=== PATIENT | female | born 1950 | race Caucasian/White ===

== ENCOUNTER 2018-11-04 05:20 | Day surgery (SDC) | payer MEDICARE ==
[~2018-11-04] VITALS: Ht 160 cm; Wt 66.7 kg
[2018-11-04 05:55] LABS: ANION GAP 13.9 mmol/L (8-16); CALCIUM 7.9 mg/dL (8.5-10.1); CARBON DIOXIDE 23.9 mmol/L (21.0-32.0); CREATININE - SERUM 2.8 mg/dL (0.6-1.3); INR 1.13 (0.85-1.17); POTASSIUM - SERUM 4.8 mmol/L (3.5-5.1)
[2018-11-04 05:56] LABS: APTT 56.2 SECONDS (22.8-39.4)
[2018-11-04 06:15] LABS: HEMATOCRIT 32.2 % (36.0-48.0); HEMOGLOBIN 10.4 g/dL (12-16); LYMPHOCYTES 26.3 % (15-50); MCH 27.8 pg (26.0-34.0); MCHC 32.3 g/dL (31.0-37.0); MCV 86.1 fL (80.0-100.0); NEUTROPHILS 58.5 % (40-80); PLATELET COUNT 106 10x3/uL (130-400); RBC 3.74 10x6/uL (4.00-5.40); RDW 13.2 % (11.5-14.5); WBC 4.4 10x3/uL (4.8-10.8)
[2018-11-04] MEDS ORDERED: LISINOPRIL40 MG (06:43)
[2018-11-04] MEDS ORDERED: FUROSEMIDE40 MG PO (06:48)
[2018-11-04] MEDS ORDERED: RANITIDINE HCL150 M1 (06:49)
[2018-11-04] MEDS ORDERED: CARDURA2 MG PO (06:50)
[2018-11-04] MEDS ORDERED: NORVASC10 MG (06:50)
[2018-11-04] MEDS ORDERED: ISOSORBIDE MONO30 M1 (06:50)
[2018-11-04] MEDS ORDERED: PROTONIX40 MG (06:51)
[2018-11-04] MEDS ORDERED: TOPROL XL100 MG PO (06:51)
[2018-11-04] MEDS ORDERED: SINGULAIR10 MG (06:52)
[2018-11-04] MEDS ORDERED: EFFEXOR XR75 MG (06:52)
[2018-11-04] MEDS ORDERED: ZOCOR10 MG (06:53)
[2018-11-04] MEDS ORDERED: COLACE100 MG (06:54)
[2018-11-04] MEDS ORDERED: COLACE100 MG PO (06:54)
[2018-11-04] MEDS ORDERED: VITAMIN B-12500 MC1 (06:55)
[2018-11-04] MEDS ORDERED: ARICEPT23 MG (06:56)
[2018-11-04] MEDS ORDERED: FERROUS SULFAT325 MG (06:57)
[2018-11-04] MEDS ORDERED: VITAMIN D2000 UNIT (06:57)
[2018-11-04] MEDS ORDERED: BAYER CHEWABLE81 MG PO (06:57)
[2018-11-04 07:20] VITALS: Ht 160 cm; Wt 66.7 kg
--- NOTE | 2018-11-04 09:06 | NUR ---
0825: NOTED MULTIPLE VERY SMALL SCABS ON LEFT ARM BLOCK DONE IN HOLDING AREA PER ANESTHESIA
[2018-11-04] MEDS ORDERED: HYDROCODON-ACE1 EAC7 PO (12:29)
--- NOTE | 2018-11-04 14:10 | NUR ---
RIGHT HAND PIV DC'D WITH TIP INTACT. PATIENT WALKING AROUND ROOM, WEARING LEFT ARM SLING, GOOD MOVEMENT AND SENSATION NOTED IN LEFT ARM. PATIENT DRESSING IN PERSONAL CLOTHING WITH DAUGHTER ASSISTANCE
--- NOTE | 2018-11-04 14:30 | NUR ---
DISCHARGE INSTRUCTIONS REVIEWED WITH PATIENT AND DAUGHTER, DISCHARGED HOME VIA WHEELCHAIR TO PRIVATE VEHICLE WITH DAUGHTER
--- NOTE | 2018-11-08 14:58 | OP ---
PATIENT NAME: MARIA DE JESUS CLAUDIO MEDICAL RECORD: [id number] :46 LOCATION:[facility] ADMISSION DATE: SURGEON: DAWOOD HOLM MD DATE OF OPERATION: 11/04/2018 REFERRED BY: Dr. Grullon. PREOPERATIVE DIAGNOSIS: Chronic kidney disease IV. POSTOPERATIVE DIAGNOSIS: Chronic kidney disease IV. OPERATION PERFORMED: Initial unsuccessful attempt to create a Darrell type brachial artery to basilic vein AV fistula followed by implantation of an Artegraft between the proximal basilic vein and the brachial artery just above the antecubital space, also with intraoperative ultrasound. SURGEON: Dawood Holm MD ANESTHESIA: Regional nerve block and IV sedation and monitoring per SHAFT SINKER. PREOPERATIVE NOTE: Ms. Claudio is a 68-year-old white female patient with chronic renal disease, who is expected to require dialysis in the relatively near future. She was referred to me for dialysis access and hopefully she can have an AV fistula created, though her vein mapping indicates small vessels and because of that and her age and tissues, she may have to have an AV graft. Under a nerve block in supine position and under sedation and monitored per SHAFT SINKER, the patient is prepped and draped in sterile manner. I used a [place] drain as a proximal venous tourniquet and applied topical nitroglycerin to the intact skin of the arm and forearm. I performed Duplex Venous Ultrasound examination and demonstrated a 2 mm cephalic vein at the wrist and mid forearm and not much better at the antecubital level. There was an approximately 3-3.5 mm basilic vein at the antecubital level. The brachial artery was relatively clear of atherosclerotic disease and was not calcified and of adequate caliber about 4 mm-5 mm in diameter and so at that point, I elected to go ahead and attempt to create a Darrell type brachiobasilic AV fistula, which if successful would require a second operation for translocation. I made an incision directly over the distal basilic vein and this was curved laterally on to the antecubital space. The brachial artery was exposed and controlled with doubly looped Silastic tapes. The basilic vein was exposed and dissected for a distance of about 2 inches. Multiple tributaries were ligated and divided between clips and Vicryl ties and the vein was treated repeatedly with topical papaverine, yet spasm and the vessel was quite severe. The vein was then ligated distally and transected and bevelled and flushed with heparinized saline and distended as hydrostatically with the heparinized saline while additional papaverine was applied. The vessel was then anastomosed end-to-side to the brachial artery. First, the artery was opened and flushed proximally and distally with heparinized saline and an end-to-side, end of vein to side of artery anastomosis was performed with running 7-0 Prolene. When completed, the fistula functioned poorly and then thrombosed and at that point, I elected to take down the fistula and go ahead and implant a graft. The fistula had been very difficult to construct at that level with that size vein and I thought it would be foolish to persist with that effort. The vein was subsequently ligated and later detached from the anastomotic area on the brachial artery. A vertical incision was made on the medial aspect of the upper arm and the basilic vein exposed and OPERATIVE REPORT [id number] MARIA DE JESUS CLAUDIO controlled with Silastic loops and it was of good caliber a centimeter or so in diameter. It was opened longitudinally and flushed proximally and distally with heparinized saline and a 6 mm diameter Artegraft was bevelled and anastomosed end-to-side, end of Artegraft to side of vein with running 6-0 Prolene and the suture line was subsequently hemostatic. The graft was pulled through a subcutaneous tunnel, it was immediately under the skin and passed laterally from the axilla and then back medially towards the brachial artery. The graft was flushed with heparinized saline and then shortened and bevelled. The vein anastomosis to the brachial artery was then taken apart and thrombus removed from the brachial artery with a 4-Afghan Analisa embolectomy catheter and the artery flushed again more copiously proximally and distally with heparinized saline. The graft was then anastomosed to the side of the artery with running 6-0 Prolene and when this anastomosis was completed, it was sealed with BioGlue and after 2 minutes, the clamps and loops were released, excellent flow developed within the graft and the suture line was hemostatic. There was good Doppler pulsatile flow in the brachial artery distal to the anastomosis and there was persistent pulsatile flow in the radial and ulnar arteries at the wrist with the AV graft open as well as closed. The wounds were irrigated with saline. The proximal wound had to be infiltrated with 1% lidocaine and additional 0.25% Marcaine for sufficient analgesia, they are in the upper end of the range of the nerve block. That wound was closed without a drain with interrupted 3-0 Vicryl and running intracuticular 4-0 Monocryl. The incision just medial to the antecubital space was closed similarly. Both incisions were sealed with Dermabond glue and dressed with Maxorb Ag, Tegaderm, and Cavilon skin prep. I noted a significant hematoma had formed in the arm around the new graft and I examined this with color flow Duplex ultrasound and noted good flow within the graft without any evidence of pseudoaneurysm or leak without any flow of blood in the perigraft tunnel. The patient was taken back to the recovery room in stable condition. Blood loss during the operation was about 20 cc, was unreplaced. Sponges, instruments and needles were accounted for. No drain was used and no surgical specimen submitted for histopathology. PLAN: For Ms. Claudio to go home today and return to see me in my office next week. She will continue her same medications, diet and activities. She is given a prescription for 14 tablets of [place] 5/325 one p.o. q.4 hours p.r.n. pain. TRANSINT:[id number] Voice Confirmation ID: [id number] DOCUMENT ID: [id number] DAWOOD HOLM MD at 1458 CC: ZEE GRULLON MD [id number] DICTATION DATE: 11/04/18 1248 ANALOG IC DESIGN ARCHITECT: 11/04/185 [facility] 11/04/18 [id number] [place] [address]
== END 2018-11-04 14:30 | disposition home or self-care (01) ==
LOC: D.OPS 05:20
PROVIDERS: Internal Medicine
DX: N18.4 Chronic kidney disease, stage 4 (severe) (principal); Z01.812 Encounter for preprocedural laboratory examination

== ENCOUNTER 2019-04-04 11:25 | Day surgery (SDC) | payer MEDICARE ==
[2019-04-03 15:42] LABS: BASOPHILS 0.7 % (0-2); EOSINOPHILS 2.4 % (0-7); HEMATOCRIT 33.5 % (36.0-48.0); HEMOGLOBIN 10.5 g/dL (12-16); IMMATURE GRANULOCYTES 0.5 % (0-5); LYMPHOCYTES 11.2 % (15-50); MCH 28.3 pg (26.0-34.0); MCHC 31.3 g/dL (31.0-37.0); MCV 90.3 fL (80.0-100.0); MONOCYTES 7.5 % (2-11); NEUTROPHILS 77.7 % (40-80); RBC 3.71 10x6/uL (4.00-5.40); RDW 16.1 % (11.5-14.5); WBC 5.9 10x3/uL (4.8-10.8)
[2019-04-03 15:53] LABS: INR 1.13 (0.85-1.17)
[2019-04-03 16:03] LABS: PLATELET COUNT 28 10x3/uL (130-400)
[2019-04-03 16:04] LABS: PLATELET ESTIMATE DECREASED
[2019-04-03 16:11] LABS: ANION GAP 11.9 mmol/L (8-16); CALCIUM 7.6 mg/dL (8.5-10.1); CARBON DIOXIDE 30.9 mmol/L (21.0-32.0); CREATININE - SERUM 1.9 mg/dL (0.6-1.3); POTASSIUM - SERUM 3.8 mmol/L (3.5-5.1)
[~2019-04-04] VITALS: Ht 162.6 cm; Wt 67.7 kg
[~2019-04-04 11:25] MED LIST: ARICEPT23 MG; BAYER CHEWABLE81 MG PO; CARDURA2 MG PO; COLACE100 MG; COLACE100 MG PO; EFFEXOR XR75 MG PO; FERROUS SULFAT325 MG; FUROSEMIDE40 MG PO; HYDROCODON-ACE1 EAC7 PO; ISOSORBIDE MONO30 M1 PO; LISINOPRIL40 MG PO; NORVASC10 MG PO; PROTONIX40 MG PO; RANITIDINE HCL150 M1 PO; SINGULAIR10 MG PO; TOPROL XL100 MG PO; VITAMIN B-12500 MC1; VITAMIN D2000 UNIT PO; ZOCOR10 MG PO
[2019-04-04 14:23] VITALS: BMI 25.6
--- NOTE | 2019-04-04 16:40 | NUR ---
1630 DR. GELLER'S OFFICE NOTIFIED PT WILL BE PLACED IN OBSERVATION AND OF CONSULT. 1640 BAM AVILES APN NOTIFIED OF PT WILL BE PLACED IN OBSERVATION AND OF CONSULT. 1735DENIES PROBLEMS WITH PLATLETS. FAMILY AT BEDSIDE.
--- NOTE | 2019-04-04 19:10 | NUR ---
1709 TO 2130 VIA TO AWAIT FOR SURGERY.
--- NOTE | 2019-04-04 19:15 | NUR ---
REPORT RECEIVED FROM BRIANNE.
--- NOTE | 2019-04-04 19:30 | NUR ---
RECEIVED PATIENT VIA W/C. PATIENT IS A&OX4, SELF TRANSFERS. PATIENT WILL BE HAVING REVISION SURGERY TONIGHT ON LUE FISTULA. PATIENT HAS IV TO RT WRIST, PATENT, DRSG C/D/I, NS RUNNING @100ML/HR. WILL CPOC. FAMILY AT BEDSIDE. PATIENT DENIES NEEDS AT THIS TIME. CL IN REACH, BED LOCKED AND LOWERED. WILL CTM.
[2019-04-04 20:00] VITALS: BP 137/65
--- NOTE | 2019-04-04 21:20 | NUR ---
RECEIVED CALL FROM SURGERY, PATIENT SURGERY HAS BEEN CANCELLED AND RESCHEULED FOR TOMORROW. DR. HOLM IS WITH PATIENT. PATIENT REQUESTS A SANDWICH AND LIQUIDS. DIET ORDERS HAVE BEEN CHANGED TO RENAL UNTIL MIDNIGHT THEN BACK TO NPO. SANDWICH PROVIDED. PATIENT DENIES FURTHER NEEDS. CL IN REACH, BED LOCKED AND LOWERED. WILL CTM.
[2019-04-04 22:23] VITALS: BP 137/65; BMI 25.6
[2019-04-05] VITALS: BP 138/64
[2019-04-05 04:00] VITALS: BP 150/69
[2019-04-05 06:43] LABS: BASOPHILS 0.6 % (0-2); EOSINOPHILS 3.7 % (0-7); HEMATOCRIT 29.7 % (36.0-48.0); HEMOGLOBIN 9.3 g/dL (12-16); IMMATURE GRANULOCYTES 0.2 % (0-5); LYMPHOCYTES 12.5 % (15-50); MCH 28.4 pg (26.0-34.0); MCHC 31.3 g/dL (31.0-37.0); MCV 90.5 fL (80.0-100.0); MEAN PLATELET VOLUME 11.6 fL (7.4-10.4); RBC 3.28 10x6/uL (4.00-5.40); RDW 16.3 % (11.5-14.5); WBC 4.9 10x3/uL (4.8-10.8)
[2019-04-05 06:49] LABS: PLATELET COUNT 86 10x3/uL (130-400)
[2019-04-05 08:44] VITALS: BP 156/64
[2019-04-05 08:51] LABS: % SATURATION 21 % (15-55); IRON 44 ug/dl (35-150); TOTAL IRON BIND CAPACITY 203 ug/dl (260-445); UNSAT IRON BIND CAPACITY 159 ug/dl (150-375)
--- NOTE | 2019-04-05 09:36 | NUR ---
ASSESSMENT DONE. YARIEL NEEDS
--- NOTE | 2019-04-05 11:46 | NUR ---
I have reviewed this patient and I concur with the Shift Assessment completed by the Licensed Practical Nurse today this shift.
[2019-04-05 12:27] VITALS: BP 164/80
--- NOTE | 2019-04-05 15:49 | NUR ---
PREOP DONE. DAUGHTER AT SIDE.
--- NOTE | 2019-04-05 18:26 | NUR ---
WITHOUT CHANGES OR DISTRESS NOTED AT THIS TIME.
--- NOTE | 2019-04-05 19:30 | NUR ---
PT STILL IN OR. SARI IN THE ROOM. WILL UPDATE ONCE PT IS BACK TO ROOM.
[2019-04-05 20:00] VITALS: BP 114/72
--- NOTE | 2019-04-05 20:10 | NUR ---
PT BACK FROM OR. BP 144/72, HR 74, RES 16, TEMP 98.1. PT AAO, LAYING IN BED. POST OP VS STARTED. FAMILY AT BEDSIDE. NO SS OF DISTRESS. PT LUNGS BILAT ALL LOBES CLEAR AND EQUAL. S1S2. NO CO PAIN AT THIS TIME.
[2019-04-06] VITALS: BP 137/71
[2019-04-06 04:00] VITALS: BP 145/68
--- NOTE | 2019-04-06 04:20 | NUR ---
PT SITTING UP IN BED. NO NEEDS NOTED AT THIS TIME. CL IN REACH, BED IN LOWEST POSITION.
--- NOTE | 2019-04-06 06:18 | NUR ---
PT ASLEEP IN BED. NO FURTHER NEEDS NOTED AT THIS TIME.
--- NOTE | 2019-04-06 07:29 | NUR ---
ROUNDING DONE WITH PATIENT RESTING WITH EYES CLOSED, NASAL CANNULA AT 4L. RES. LEFT ARM WITH AVF. RIGHT FA PIV SEEN WITH SALINE LOCK. DAUGHTER AT BEDSIDE. WILL MONITOR.
--- NOTE | 2019-04-06 10:17 | NUR ---
NON SKID SOCKS PLACED ON PATIENT. DAUGHTER AT BEDSIDE. IV FLUIDS FROM POST OP HANGING ON POLE COMVERTED TO SALINE LOCK WITH EXTENSION. DENIES NEEDS AT THIS TIME. O2 ON 4L PER NC DROPPED TO 3L PER NC.
--- NOTE | 2019-04-06 11:01 | NUR ---
O2 SAT CHECKED WITH RESULTS OF 98%. LOWERED TO 2L PER NC. PATIENT IS UP IN CHAIR, WILL RE-CHECK IN ONE HOUR. PATIENT INSTRUCTED TO CALL IF SHORTNESS OF BREATH.
[2019-04-06 11:40] VITALS: BP 147/58
--- NOTE | 2019-04-06 12:05 | NUR ---
O2 SAT IS 96 %. PATIENT IS SITTING UP IN THE CHAIR EATING A PULP DRIER FIRER SALAD, DAUGHTER AT BEDSIDE. WILL REMOVE NASAL CANNULA AND SEE HOW SHE DOES PAST LUNCH.
--- NOTE | 2019-04-06 14:05 | NUR ---
PATIENT IS NOT IN HER ROOM AT THIS TIME FOR ME TO CHECK HER O2 SATS. HER BELONGINING ARE.
--- NOTE | 2019-04-06 15:04 | NUR ---
STILL IN DIALYSIS.
--- NOTE | 2019-04-06 16:06 | NUR ---
STILL OFF THE FLOOR AT THIS TIME.
--- NOTE | 2019-04-06 16:36 | NUR ---
RETURNS FROM DIALYSIS. ENCOURGED PATIENT TO EAT SUPPER THEN WE CAN DISCHARGE HOME AFTER THAT. STATES TO UNDERSTANDING.
--- NOTE | 2019-04-06 17:22 | NUR ---
VERBAL AND WRITTEN DISCHARGE INSTRUCTIONS GIVEN TO PATIENT AND DAUGHTER. SALINE LOCK REMOVED WITH CATH TIP INTACT. DISCHARGED HOME VIA WHEELCHAIR.
--- NOTE | 2019-04-07 16:44 | OP ---
PATIENT NAME: MARIA DE JESUS CLAUDIO MEDICAL RECORD: [id number] :46 [facility] AD[facility] DATE: SURGEON: DAWOOD HOLM MD DATE OF OPERATION: 04/05/2019 PREOPERATIVE DIAGNOSES: End-stage renal disease and steal syndrome associated with left arm brachial artery to basilic vein Artegraft AV graft. POSTOPERATIVE DIAGNOSES: End-stage renal disease and steal syndrome associated with left arm brachial artery to basilic vein Artegraft AV graft. OPERATIONS PERFORMED: Ultrasound-guided access to AV graft and performance of selective brachial artery arteriogram followed by open Toro banding of the distal AV graft with significant improvement in Doppler signals from the radial and ulnar arteries at the wrist with preservation of good Doppler flow within the graft itself. SURGEON: Dawood Holm MD ANESTHESIA: General with LMA per ELEVATOR REPAIR MECHANIC. REFERRING PHYSICIAN: Med Grullon PREOPERATIVE NOTE: Maria De Jesus Claudio is a 68-year-old white female patient on chronic hemodialysis, who has steal symptoms in her left hand. On physical examination, she has return of polyphasic Doppler flow in the radial artery at the wrist with occlusion of her AV graft. This is an Artegraft placed between the brachial artery just above the antecubital level and the basilic vein at the axilla. The patient was scheduled for surgery yesterday and it could not be done in a reasonable time, so she remained in the hospital on observation again a second night. This evening, the second day after waiting all day n.p.o., she is brought to the operating room for her procedure. The patient does have a diagnosis of myelodysplastic syndrome and has been followed by Dr. Geller for that. She was discovered perioperatively to have rather severe thrombocytopenia. This, I do not believe had been noted or documented prior to this hospitalization with her initial platelet count of only 29,000. At this point, I do not know if this is part of her myelodysplastic syndrome or whether she may have developed heparin-related antiplatelet antibodies or some other etiology. Dr. Geller has seen her in consultation here in the hospital. DESCRIPTION OF PROCEDURE: Under general anesthesia, in supine position, the patient was prepped and draped in a sterile manner. I examined her with continuous wave handheld Doppler and noted that there was no radial artery or ulnar artery detectable Doppler flow signal. I then accessed her AV graft in the upper arm using ultrasound guidance and micropuncture technique. I then placed a 6-Haitian introducer. I passed a guidewire and [place] catheter distally and identified the brachial artery anastomosis. I selected and directed the wire and catheter proximally in the brachial artery to the axilla. Contrast injection then with digital subtraction technique demonstrated normal brachial artery and bifurcation and actually did not demonstrate a significant steal. This, I think, was because her brachial artery was small, especially relative to the 5-Haitian catheter which was used for this study. The operation therefore really had to be based upon and gauged by the handheld Doppler signal response OPERATIVE REPORT [id number] MARIA DE JESUS CALUDIO to narrowing of the graft. I inserted a 4-mm diameter 40-mm long angioplasty balloon into the fistula and placed it just proximally to the anastomosis. I made a longitudinal medial incision and exposed the graft and dissected circumferentially and then placed three 2-0 Prolene ligatures around the graft with a 4-mm balloon inflated within it. As a result of this, excellent polyphasic Doppler flow returned in the radial artery at the wrist and a biphasic signal in the ulnar artery at the wrist. Excellent flow was maintained within the graft itself by physical examination and Doppler. The hand became pink and warm. The instrumentation was removed. The Prolene suture was rotated so that the knots did not lie underneath the surgical incision directly. The wound was closed with a running intracuticular Stratafix and Dermabond glue, and dressed with Maxorb Ag, Tegaderm, and Cavilon skin prep. The 6-Haitian introducer was removed and hemostasis was obtained there with a [id number] 4-0 Prolene suture and that site was dressed with Ultrafoam, Tegaderm, and Cavilon skin prep. She was awakened and taken to the recovery room in stable condition. Blood loss during the operation was insignificant and unreplaced. Sponges, instruments, and needles were accounted for. No drain was used and no surgical specimen was submitted for histopathology. The patient was given one unit of platelets immediately preoperatively and should be counted as an intraoperative transfusion. TRANSINT:[id number] Voice Confirmation ID: [id number] DOCUMENT ID: [id number] DAWOOD HOLM MD at 8282 CC: MARGARITA GELLER MD and MED GRULLON MD [id number] DICTATION DATE: 04/05/191934 FIELD TECH: 04/05/192027 [facility] 04/06/19 [id number] [facility]
[2019-04-19 17:43] VITALS: Ht 162.6 cm; Wt 67.7 kg
== END 2019-04-06 17:27 | disposition home or self-care (01) ==
LOC: D.M2 11:25 → D.OPS 11:25 → D.PAN 14:30 → D.OPS 19:12 → D.M2 19:12 → D.OPS 04-06 17:27 → D.M2 04-11 10:10
PROVIDERS: Internal Medicine Hematology & Oncology; Surgery; ATTEND Internal Medicine
DX: T82.898A Other specified complication of vascular prosthetic devices, implants and grafts, initial encounter (principal); N18.6 End stage renal disease; Z99.2 Dependence on renal dialysis; Z01.812 Encounter for preprocedural laboratory examination

== ENCOUNTER → 2019-06-22 11:54 | Outpatient (CLI) | payer MEDICARE ==
[2019-04-19 17:43] VITALS: BMI 25.6
[~2019-06-22 11:54] MED LIST changes: +ELIQUIS2.5 MG PO; +LASIX40 MG PO; +VITAMIN B-12500 MCG PO; +ZOFRAN ODT4 MG/UDTAB PO
[2019-06-22 12:27] LABS: BASOPHILS 1.2 % (0-2); EOSINOPHILS 5.7 % (0-7); HEMATOCRIT 30.9 % (36.0-48.0); HEMOGLOBIN 9.4 g/dL (12-16); LYMPHOCYTES 29.6 % (15-50); MCH 28.1 pg (26.0-34.0); MCHC 30.4 g/dL (31.0-37.0); MCV 92.2 fL (80.0-100.0); MEAN PLATELET VOLUME 11.8 fL (7.4-10.4); MONOCYTES 7.9 % (2-11); NEUTROPHILS 55.6 % (40-80); RBC 3.35 10x6/uL (4.00-5.40); RDW 15.3 % (11.5-14.5); WBC 3.3 10x3/uL (4.8-10.8)
[2019-06-22 12:44] LABS: PLATELET COUNT 63 10x3/uL (130-400)
[2019-06-22 13:05] LABS: PLATELET ESTIMATE DECREASED
[2019-06-24 18:08] LABS: HEPARIN INDUCED PLATELET AB 0.595 OD (0.000-0.400)
== END | disposition home or self-care (01) ==
LOC: D.LAB 11:54
PROVIDERS: ATTEND Internal Medicine Hematology & Oncology
DX: D69.6 Thrombocytopenia, unspecified (principal); D75.82 Heparin induced thrombocytopenia (HIT); T82.868A Thrombosis due to vascular prosthetic devices, implants and grafts, initial encounter

== ENCOUNTER 2019-06-27 05:20 | Inpatient (IN) | payer MEDICARE ==
[2019-06-26 15:53] LABS: BASOPHILS 0.9 % (0-2); EOSINOPHILS 3.8 % (0-7); HEMATOCRIT 31.2 % (36.0-48.0); HEMOGLOBIN 9.6 g/dL (12-16); IMMATURE GRANULOCYTES 0.3 % (0-5); LYMPHOCYTES 22.3 % (15-50); MCH 28.3 pg (26.0-34.0); MCHC 30.8 g/dL (31.0-37.0); MEAN PLATELET VOLUME 11.3 fL (7.4-10.4); MONOCYTES 12.1 % (2-11); NEUTROPHILS 60.6 % (40-80); PLATELET COUNT 64 10x3/uL (130-400); RBC 3.39 10x6/uL (4.00-5.40); RDW 15.2 % (11.5-14.5); WBC 3.5 10x3/uL (4.8-10.8)
[2019-06-26 16:05] LABS: INR 1.06 (0.85-1.17); PROTIME 13.3 SECONDS (11.6-15.0)
[2019-06-26 16:06] LABS: ANION GAP 12.3 mmol/L (8-16); CALCIUM 7.6 mg/dL (8.5-10.1); CARBON DIOXIDE 31.1 mmol/L (21.0-32.0); CREATININE - SERUM 1.5 mg/dL (0.6-1.3); POTASSIUM - SERUM 3.4 mmol/L (3.5-5.1)
[2019-06-26 16:53] LABS: PLATELET ESTIMATE DECREASED
[~2019-06-27] VITALS: Ht 162.6 cm; Wt 69.1 kg
[2019-06-27] VITALS (12 sets, daily range): BP systolic 120–167; BP diastolic 69–89; BMI 29.6; BMI 26.3
[~2019-06-27 05:20] MED LIST changes: -ELIQUIS2.5 MG PO; -LASIX40 MG PO; -VITAMIN B-12500 MCG PO
[2019-06-27] MEDS ORDERED: LASIX40 MG PO (06:15)
[2019-06-27] MEDS ORDERED: VITAMIN B-12500 MCG PO (06:15)
[2019-06-27 09:29] LABS: INR 1.22 (0.85-1.17); PROTIME 14.8 SECONDS (11.6-15.0)
[2019-06-27 09:30] LABS: APTT 52.8 SECONDS (22.8-39.4)
[2019-06-27 13:03] LABS: INR 3.08 (0.85-1.17)
[2019-06-27 13:04] LABS: APTT 120.2 SECONDS (22.8-39.4)
[2019-06-27 13:17] LABS: ALBUMIN 2.9 g/dL (3.4-5.0); BILIRUBIN - DIRECT 0.12 mg/dL (0.00-0.30); BILIRUBIN - INDIRECT 0.29 mg/dL (0.00-1.00); BILIRUBIN - TOTAL 0.41 mg/dL (0.2-1.3); PROTEIN - SERUM 6.2 g/dL (6.4-8.2)
[2019-06-28] VITALS (27 sets, daily range): BP systolic 128–221; BP diastolic 54–96; Ht 162.6 cm; Wt 69.1 kg
[2019-06-28 04:47] LABS: PLATELET COUNT 103 10x3/uL (130-400)
[2019-06-28 04:59] LABS: APTT 108.3 SECONDS (22.8-39.4); INR 1.88 (0.85-1.17)
[2019-06-28 08:55] LABS: BASOPHILS 0.8 % (0-2); EOSINOPHILS 3.2 % (0-7); HEMATOCRIT 27.2 % (36.0-48.0); HEMOGLOBIN 8.1 g/dL (12-16); LYMPHOCYTES 17.6 % (15-50); MCH 28.5 pg (26.0-34.0); MCHC 29.8 g/dL (31.0-37.0); MCV 95.8 fL (80.0-100.0); MEAN PLATELET VOLUME 11.2 fL (7.4-10.4); MONOCYTES 6.3 % (2-11); NEUTROPHILS 72.1 % (40-80); RBC 2.84 10x6/uL (4.00-5.40); RDW 15.4 % (11.5-14.5); WBC 3.8 10x3/uL (4.8-10.8)
[2019-06-28 10:06] LABS: % SATURATION 11 % (15-55); IRON 21 ug/dl (35-150); TOTAL IRON BIND CAPACITY 189 ug/dl (260-445); UNSAT IRON BIND CAPACITY 168 ug/dl (150-375)
[2019-06-29] VITALS (24 sets, daily range): BP systolic 135–174; BP diastolic 55–87
[2019-06-29 04:27] LABS: APTT 123.4 SECONDS (22.8-39.4); INR 2.45 (0.85-1.17); PROTIME 25.9 SECONDS (11.6-15.0)
[2019-06-29 04:40] LABS: PLATELET COUNT 57 10x3/uL (130-400)
[2019-06-29 06:51] LABS: BASOPHILS 0.4 % (0-2); EOSINOPHILS 1.7 % (0-7); HEMATOCRIT 28.4 % (36.0-48.0); HEMOGLOBIN 8.9 g/dL (12-16); IMMATURE GRANULOCYTES 0.2 % (0-5); LYMPHOCYTES 17.4 % (15-50); MCH 28.5 pg (26.0-34.0); MCHC 31.3 g/dL (31.0-37.0); MEAN PLATELET VOLUME 11.6 fL (7.4-10.4); MONOCYTES 9.2 % (2-11); NEUTROPHILS 71.1 % (40-80); RBC 3.12 10x6/uL (4.00-5.40); RDW 15.3 % (11.5-14.5); WBC 4.7 10x3/uL (4.8-10.8)
[2019-06-29 06:54] LABS: PLATELET ESTIMATE DECREASED
[2019-06-29 15:11] LABS: BASOPHILS 0.4 % (0-2); EOSINOPHILS 4.7 % (0-7); HEMATOCRIT 28.4 % (36.0-48.0); HEMOGLOBIN 8.9 g/dL (12-16); IMMATURE GRANULOCYTES 0.2 % (0-5); LYMPHOCYTES 21.6 % (15-50); MCH 28.9 pg (26.0-34.0); MCHC 31.3 g/dL (31.0-37.0); MCV 92.2 fL (80.0-100.0); MEAN PLATELET VOLUME 11.6 fL (7.4-10.4); MONOCYTES 9.4 % (2-11); NEUTROPHILS 63.7 % (40-80); PLATELET COUNT 63 10x3/uL (130-400); RBC 3.08 10x6/uL (4.00-5.40); RDW 15.3 % (11.5-14.5); WBC 4.5 10x3/uL (4.8-10.8)
[2019-06-29 15:36] LABS: PLATELET ESTIMATE DECREASED
[2019-06-29 15:58] LABS: INR 2.03 (0.85-1.17); PROTIME 22.2 SECONDS (11.6-15.0)
[2019-06-29 17:15] LABS: APTT 74.9 SECONDS (22.8-39.4)
--- NOTE | 2019-06-29 17:33 | MORECARE ---
CASE MANAGEMENT DISCHARGE SUMMARY PATIENT: MARIA DE JESUS CLAUDIO UNIT: [id number] ADM DATE: 06/27/19 AGE: 69 : 48 SEX: F ROOM/BED: D.2308 AUTHOR: CHERELLE ANDUJAR PHYSICIAN: REFERRING PHYSICIAN: MYAH ARMSTRONG MD DATE OF SERVICE: 06/29/19 Discharge Plan Patient Name: MARIA DE JESUS CLAUDIO Facility: [facility]:[place] : 1950 Planned Disposition: Home Anticipated Discharge Date: Discharge Date: Expected LOS: Initial Reviewer: [email or web address] Initial Review Date: 06/29/2019 Generated: 06/29/19 6:32 pm Patient Name: MARIA DE JESUS CLAUDIO Page [phone] at 1733 All edits/amendments must be made on the electronic document DICTATION DATE: 06/29/191731 LIVESTOCK FARM WORKERS: IESHA 06/29/191731 RPT#: [id number] MT DATE: STATUS: ADM IN [facility] [address] [place] [address] END OF REPORT
--- NOTE | 2019-06-29 17:42 | MORECARE ---
CASE MANAGEMENT DISCHARGE SUMMARY PATIENT: MARIA DE JESUS CLAUDIO UNIT: [id number] ADM DATE: 06/27/19 AGE: 69 : 48 SEX: F ROOM/BED: D.2302 AUTHOR: PRATIMA,DOC PHYSICIAN: REFERRING PHYSICIAN: MYAH ARMSTRONG MD DATE OF SERVICE: 06/29/19 Discharge Plan Patient Name: MARIA DE JESUS CLAUDIO Facility: [facility]:[place] : 1950 Planned Disposition: Home Anticipated Discharge Date: Discharge Date: Expected LOS: Initial Reviewer: [email or web address] Initial Review Date: 06/29/2019 Generated: 06/29/19 6:42 pm Comments DCP- Discharge Planning Updated by [email or web address]: Annalisa Tuttle on 06/29/19 4:[address] Patient Name: MARIA DE JESUS CLAUDIO Admission Status: Elective Accout number: [id number] Admission Date: 06-27-2019 : 1950 Admission Diagnosis: Attending: MYAH ARMSTRONG Current LOS: 2 Anticipated DC Date: Planned Disposition: Home Primary Insurance: MEDICARE A & B Discharge Planning Comments: CM met with patient to complete initial dc planning assessment. CM educated patient on the CM role and verbal consent given by patient to complete assessment. Patient lives at home alone where she is independent with her care. At discharge patient plans to return home and feels this is a safe discharge. CM discussed availability of home health, rehab services, and medical equipment. Her daughter will be her route relief driver home. Patient has home o2 and portable 02 (unknown provider) Patient has dialysis MWF @ [facility] Patient denied known discharge needs at this time. CM will continue to follow and will assist as needed with dc plans/needs. Cot Assembler: Annalisa Tuttle DCPIA - Discharge Planning Initial Assessment Updated by [email or web address]: Annalisa Tuttle on 06/29/19 5:34 pm * Is the patient Alert and Oriented? Yes * How many steps to enter\exit or inside your home? elevator * PCP TUSHAR LOZANO * Pharmacy [facility] * Preadmission Environment Home Alone * ADLs Independent * Other Equipment HOME 02 / PORTABLE * List name and contact numbers for known caregivers / representatives who currently or will assist patient after discharge: CORBIN RACHNA COYLE- [phone] * Verbal permission to speak to the caregivers and representatives has been obtained from the patient. Yes * Community resources currently utilized None * Additional services required to return to the preadmission environment? No * Can the patient safely return to the preadmission environment? Yes * Has this patient been hospitalized within the prior 30 days at any hospital? No Last DP export: 06/29/19 4:33 Patient Name: MARIA DE JESUS CLAUDIO Page [phone] at 1742 All edits/amendments must be made on the electronic document DICTATION DATE: 06/29/191741 HAND TUBE WINDER: IESHA 06/29/191741 RPT#: [id number] NM DATE: STATUS: ADM IN [facility] [address] [place] [address] END OF REPORT
[2019-06-29 20:26] LABS: APPEARANCE CLEAR (CLEAR); BILIRUBIN NEGATIVE (NEGATIVE); COLOR YELLOW (YELLOW); GLUCOSE NEGATIVE (NEGATIVE); KETONE NEGATIVE (NEGATIVE); NITRITE NEGATIVE (NEGATIVE); PROTEIN 1+ mg/dL (NEGATIVE); SPECIFIC GRAVITY 1.015 (1.005-1.020); UROBILINOGEN NORMAL (NORMAL)
[2019-06-29 20:28] LABS: BACTERIA FEW /hpf (NEGATIVE); RED CELLS - URINE 0-5 /hpf (0-5); WHITE CELLS - URINE 0-5 /hpf (NEGATIVE)
[2019-06-30] VITALS (18 sets, daily range): BP systolic 138–171; BP diastolic 68–109
[2019-06-30 05:09] LABS: INR 2.15 (0.85-1.17); PROTIME 23.3 SECONDS (11.6-15.0)
[2019-06-30 05:12] LABS: APTT 120.4 SECONDS (22.8-39.4)
[2019-06-30] MEDS ORDERED: ELIQUIS2.5 MG PO (12:50)
[2019-06-30 14:09] LABS: SPE - ALBUMIN 2.7 g/dL (2.9-4.4); SPE - ALPHA-1 GLOBULIN 0.3 g/dL (0.0-0.4); SPE - ALPHA-2 GLOBULIN 0.6 g/dL (0.4-1.0); SPE - BETA GLOBULIN 0.7 g/dL (0.7-1.3); SPE - GAMMA GLOBULIN 1.3 g/dL (0.4-1.8); SPE - M-SPIKE Not Observed g/dL (Not Observed); SPE - TOTAL PROTEIN 5.5 g/dL (6.0-8.5)
--- NOTE | 2019-06-30 18:25 | MORECARE ---
CASE MANAGEMENT DISCHARGE SUMMARY PATIENT: MARIA DE JESUS CLAUDIO UNIT: [id number] ADM DATE: 06/27/19 AGE: 69 : 48 SEX: F ROOM/BED: D.2305 AUTHOR: CHERELLE ANDUJAR PHYSICIAN: REFERRING PHYSICIAN: MYAH ARMSTRONG MD DATE OF SERVICE: 06/30/19 Discharge Plan Patient Name: MARIA DE JESUS CLAUDIO Facility: [facility]:[place] : 1950 Planned Disposition: Home Anticipated Discharge Date: Discharge Date: Expected LOS: Initial Reviewer: [email or web address] Initial Review Date: 06/29/2019 Generated: 06/30/19 7:25 pm Comments DCP- Discharge Planning Updated by [email or web address]: Annalisa Tuttle on 06/30/19 5:[address] Patient Name: MARIA DE JESUS CLAUDIO Encounter No: [id number] : 1950 Primary Insurance: MEDICARE A & B Anticipated DC Date: Planned Disposition: Home External Planned Provider: : Jethro/Tonia IMM SIGNED 06/30/19 @ 1310 denies any needs DCP follow-up note: Patient and family in agreement with discharge plan. No changes to plan. Case management will follow and assist as needed. Annalisa Tuttle DCP- Discharge Planning Updated by [email or web address]: Annalisa Tuttle on 06/29/19 4:[address] Patient Name: MARIA DE JESUS CLAUDIO Admission Status: Elective Accout number: [id number] Admission Date: 06-27-2019 : 1950 Admission Diagnosis: Attending: MYAH ARMSTRONG Current LOS: 2 Anticipated DC Date: Planned Disposition: Home Primary Insurance: MEDICARE A & B Discharge Planning Comments: CM met with patient to complete initial dc planning assessment. CM educated patient on the CM role and verbal consent given by patient to complete assessment. Patient lives at home alone where she is independent with her care. At discharge patient plans to return home and feels this is a safe discharge. CM discussed availability of home health, rehab services, and medical equipment. Her daughter will be her otr flatbed company truck driver home. Patient has home o2 and portable 02 (unknown provider) Patient has dialysis MWF @ [facility] Patient denied known discharge needs at this time. CM will continue to follow and will assist as needed with dc plans/needs. Gauger Chief: Annalisa Tuttle DCPIA - Discharge Planning Initial Assessment Updated by [email or web address]: Annalisa Tuttle on 06/29/19 5:34 pm * Is the patient Alert and Oriented? Yes * How many steps to enter\exit or inside your home? elevator * PCP TUSHAR LOZANO * Pharmacy [facility] * Preadmission Environment Home Alone * ADLs Independent * Other Equipment HOME 02 / PORTABLE * List name and contact numbers for known caregivers / representatives who currently or will assist patient after discharge: CORBIN BRISCOE - DAUGHTER- [phone] * Verbal permission to speak to the caregivers and representatives has been obtained from the patient. Yes * Community resources currently utilized None * Additional services required to return to the preadmission environment? No * Can the patient safely return to the preadmission environment? Yes * Has this patient been hospitalized within the prior 30 days at any hospital? No Coverage Notice Reviewer: [id number] - Annalisa Tuttle Notice Issued Date-Time: 06/30/2019 13:10 Notice Type: IM Discharge Notice Notice Delivered To: Patient Relationship to Patient: Self Lifts And Cranes Inspector Name: Delivery Method: HAND - Hand Delivered Monalisa Days: Prior Verbal Notification: Recipient Understood Notice: Yes Recipient Signature: Yes Med Rec Note Co-signed by Attending: Coverage Notice Comment: Last DP export: 06/29/19 4:42 Patient Name: MARIA DE JESUS CLAUDIO Page [phone] at 1825 All edits/amendments must be made on the electronic document DICTATION DATE: 06/30/191823 LITHOGRAPH OPERATOR: IESHA 06/30/191823 RPT#: [id number] DC DATE: STATUS: ADM IN [facility] [address] [place] [address] END OF REPORT
--- NOTE | 2019-07-03 08:42 | MORECARE ---
CASE MANAGEMENT DISCHARGE SUMMARY PATIENT: MARIA DE JESUS CLAUDIO UNIT: [id number] ADM DATE: 06/27/19 AGE: 69 : 48 SEX: F ROOM/BED: D.4420 AUTHOR: CHERELLE ANDUJAR PHYSICIAN: REFERRING PHYSICIAN: MYAH ARMSTRONG MD DATE OF SERVICE: 07/03/19 Discharge Plan Patient Name: MARIA DE JESUS CLAUDIO Facility: [facility]:[place] : 1950 Planned Disposition: Home Anticipated Discharge Date: Discharge Date: 06/30/2019 Expected LOS: Initial Reviewer: [id number] Initial Review Date: 06/29/2019 Generated: 07/03/19 9:42 am Comments DCP- Discharge Planning Updated by [email or web address]: Annalisa Tuttle on 06/30/19 5:[address] Patient Name: MARIA DE JESUS CLAUDIO Encounter No: [id number] : 1950 Primary Insurance: MEDICARE A & B Anticipated DC Date: Planned Disposition: Home External Planned Provider: : Jethro/C IMM SIGNED 06/30/19 @ 1310 denies any needs DCP follow-up note: Patient and family in agreement with discharge plan. No changes to plan. Case management will follow and assist as needed. Annalisa Tuttle DCP- Discharge Planning Updated by [id number]: Annalisa Tuttle on 06/29/19 4:[address] Patient Name: MARIA DE JESUS CLAUDIO Admission Status: Elective Accout number: [id number] Admission Date: 06-27-2019 : 1950 Admission Diagnosis: Attending: MYAH ARMSTRONG Current LOS: 2 Anticipated DC Date: Planned Disposition: Home Primary Insurance: MEDICARE A & B Discharge Planning Comments: CM met with patient to complete initial dc planning assessment. CM educated patient on the CM role and verbal consent given by patient to complete assessment. Patient lives at home alone where she is independent with her care. At discharge patient plans to return home and feels this is a safe discharge. CM discussed availability of home health, rehab services, and medical equipment. Her daughter will be her transport truck driver home. Patient has home o2 and portable 02 (unknown provider) Patient has dialysis MWF @ [facility] Patient denied known discharge needs at this time. CM will continue to follow and will assist as needed with dc plans/needs. Bag Turner: Annalisa Tuttle DCPIA - Discharge Planning Initial Assessment Updated by [email or web address]: Annalisa Tuttle on 06/29/19 5:34 pm * Is the patient Alert and Oriented? Yes * How many steps to enter\exit or inside your home? elevator * PCP TUSHAR LOZANO * Pharmacy [facility] * Preadmission Environment Home Alone * ADLs Independent * Other Equipment HOME 02 / PORTABLE * List name and contact numbers for known caregivers / representatives who currently or will assist patient after discharge: CORBIN BRISCOE - JONNA- [phone] * Verbal permission to speak to the caregivers and representatives has been obtained from the patient. Yes * Community resources currently utilized None * Additional services required to return to the preadmission environment? No * Can the patient safely return to the preadmission environment? Yes * Has this patient been hospitalized within the prior 30 days at any hospital? No Coverage Notice Reviewer: [email or web address] - Annalisa Tuttle Notice Issued Date-Time: 06/30/2019 13:10 Notice Type: IM Discharge Notice Notice Delivered To: Patient Relationship to Patient: Self [employer] Name: Delivery Method: HAND - Hand Delivered Monalisa Days: Prior Verbal Notification: Recipient Understood Notice: Yes Recipient Signature: Yes Med Rec Note Co-signed by Attending: Coverage Notice Comment: Last DP export: 06/30/19 5:25 Patient Name: MARIA DE JESUS CLAUDIO Page 27500 at 0842 All edits/amendments must be made on the electronic document DICTATION DATE: 07/03/19841 TRAVEL CLERK: IESHA 07/03/19841 RPT#: [id number] DC DATE:06/30/19 STATUS: DIS IN [facility] [address] [place] [address] END OF REPORT
--- NOTE | 2019-07-03 16:25 | OP ---
PATIENT NAME: MARIA DE JESUS CLAUDIO MEDICAL RECORD: [id number] :[birth year] LOCATION:.[facility] D.2308 ADMISSION DATE:06/27/19 SURGEON: DAWOOD HOLM MD DATE OF OPERATION: 06/27/2019 REFERRING PHYSICIAN: Dr. Grullon and Dr. Armstrong. WALL SCRAPER: Dr. Lowe. ANESTHESIA: General with LMA per ZHOU and Dr. Wren. PREOPERATIVE NOTE: Maria De Jesus Claudio is an elderly white female patient with end-stage renal disease, who has been dialyzing with a left arm rainbow configured brachial artery to proximal basilic vein Artegraft AV graft. She had this implanted in October of this year. 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 She also has myelodysplastic syndrome and as such is hypercoagulable. She has clotted the graft now at least 3, I think maybe 4 times since it was implanted. She has had an endovascular stent placed in the venous anastomosis. About 3 weeks ago, she clotted her graft again and was unable at that time to come in to the hospital to have a procedure. Dr. Armstrong did insert a tunneled dialysis catheter, which has been working well apparently without the use of any heparin for the last 3 weeks. She is brought to the hospital today with plans to perform a percutaneous AV access angiogram and mechanical thrombolysis and additional procedures as indicated. I plan for her to be anticoagulated with argatroban and she will need to be kept and monitored in the ICU postop, so will not be an outpatient as I had originally planned, but will be converted now to an inpatient status when she goes to ICU. DESCRIPTION OF PROCEDURE: Under general anesthesia with LMA per ZHOU and Dr. Wren, the patient's arm was prepped and draped in a sterile manner. She was given 1 unit of platelets immediately in the operating room as her preop platelet count done yesterday was only 64,000. I also asked anesthesia to start an argatroban drip at 2 mg/kg per minute and they did so. I accessed the graft with micropuncture technique and placed two 6-Malagasy introducers in opposing directions. The thrombus within the mid body of the graft was extremely dense like concrete and it was very hard actually to even pass a wire through it. I used the AngioJet to at least attempt to lyse the thrombus within the body of the graft and the venous outflow and then did a gentle contrast injection and revealed severe stenosis of the mid body of the graft and a severe stenosis in the proximal basilic vein about 2 cm above the proximal end of the of the existing venous anastomotic stent. These areas were all dilated with an 8 mm diameter angioplasty balloon and repeat contrast injections revealed improvement. The graft was flushed frequently with saline. I used a 4-Malagasy Analisa embolectomy catheter to mobilize and remove thrombus from the arterial anastomosis and the juxta-arterial anastomotic segment of graft. I passed a guidewire and a glide catheter into the brachial artery distal to the anastomosis and found on contrast injection that there was extravasation and there was no filling of the arteries. This was most consistent with a perforation of the graft at or near the arterial anastomosis. There was, however, no evidence of any active bleeding. There was no hematoma formation and I was able to simply pull the wire and catheter back and successfully select the distal brachial artery and performed a distal brachial artery. Selective OPERATIVE REPORT [id number] MARIA DE JESUS CLAUDIO arteriogram, this revealed no evidence of thrombus or emboli in the distal brachial artery or its bifurcation or the radial or ulnar arteries to the wrist. The patient had excellent polyphasic Doppler flow signals in the radial and ulnar arteries and in the palmar arch as well. The hand remained warm and pink and had excellent capillary refill. I attempted to manipulate the wire and catheter then into the proximal brachial artery that I was repeatedly unsuccessful. Even with the use of a rim catheter, I was unable to pass the wire and catheter into the proximal brachial artery. Flow within the AV graft was restored, although it was somewhat slow or sluggish. I used a 5-mm angioplasty balloon to dilate the arterial anastomosis and the JA segment, which had been banded previously and subsequent contrast injection revealed some improvement in flow. The venous stenosis just above the old stent responded well to the dilatation procedure, but I am concerned that this may recur and require additional stenting in the near future. With continuous pulsatile Doppler flow restored in the graft, the 6-Malagasy sheaths were removed and hemostasis obtained with direct pressure and [id number] 4-0 Prolene skin stitches. The sites were dressed with Ultrafoam, Tegaderm, and Cavilon skin prep and the patient then subsequently awakened and taken to the recovery room. There was about 10 cc of blood loss and none replaced. The patient was given 1 unit of pharesed platelets at the beginning of the procedure. Sponges, instruments, and needles were accounted for. No drains were used and no surgical specimen was submitted for histopathology. PLAN: The patient will be monitored in the ICU and kept on an argatroban intravenous drip and while we began conversion to Coumadin or NOAC with anticoagulation to be monitored and controlled and ordered by Dr. Lowe, who is her hematology oncologist. As I have said in the future, she will at a minimum need to have a repeat angiogram in 4-6 weeks to evaluate especially the venous outflow and possibly for additional stenting. If the graft does not remain patent as it may well not then my recommendation would be that it be replaced with a new left axillary artery to axillary vein loop Artegraft, which would bypass the old venous and arterial anastomoses and the problems associated with those areas. I believe that she likely should be continued on Coumadin indefinitely to help maintain dialysis access patency. TRANSINT:[id number] Voice Confirmation ID: [id number] DOCUMENT ID: [id number] CC: DAWOOD Calderon MD at 1628 CC: MYAH ARMSTRONG and ZEE GRULLON MD [id number] DICTATION DATE: 06/27/19 1227 MANAGER OF DISASTER RECOVERY: 06/27/19 1400 DIS IN 06/30/19 [facility] [address] [place] [address]
[2019-07-04 20:07] LABS: UPE RAND - ALBUMIN QNS % (())
== END 2019-06-30 21:25 | disposition home or self-care (01) | DRG 252 ==
LOC: D.OPS 05:20 → D.CVICU 11:50 → D.ICU 11:50 → D.OPS 12:24 → D.CVICU 19:17 → D.ICU 06-29 10:53
PROVIDERS: Anesthesiology; Internal Medicine; Internal Medicine Hematology & Oncology; Surgery; ADMIT Internal Medicine Nephrology; ATTEND Internal Medicine Nephrology
PROC: 03C83ZZ Extirpation of Matter from Left Brachial Artery, Percutaneous Approach (ICD-10-PCS; principal; 2019-06-27 08:00)
DX: T82.898A Other specified complication of vascular prosthetic devices, implants and grafts, initial encounter (principal); N18.6 End stage renal disease; D61.818 Other pancytopenia; D75.82 Heparin induced thrombocytopenia (HIT); I10 Essential (primary) hypertension; D50.9 Iron deficiency anemia, unspecified

== ENCOUNTER → 2019-08-31 10:26 | Outpatient (CLI) | payer MEDICARE ==
[2019-06-28 12:19] VITALS: BMI 26.3
[~2019-08-31 10:26] MED LIST changes: +ELIQUIS2.5 MG PO; +LASIX40 MG PO; +VITAMIN B-12500 MCG PO
== END | disposition home or self-care (01) ==
LOC: D.CT 10:26
PROVIDERS: ATTEND Internal Medicine Nephrology
DX: S81.801A Unspecified open wound, right lower leg, initial encounter (principal)

== ENCOUNTER → 2019-09-14 08:43 | Outpatient (CLI) | payer MEDICARE ==
[2019-06-28 12:19] VITALS: BMI 26.3
== END | disposition home or self-care (01) ==
LOC: D.CT 08:43
PROVIDERS: ATTEND Nurse Practitioner Family
DX: I70.201 Unspecified atherosclerosis of native arteries of extremities, right leg (principal)

== ENCOUNTER 2019-11-01 14:19 | Inpatient (IN) | payer MEDICARE ==
[~2019-11-01] VITALS: Ht 165.1 cm; Wt 68.4 kg
[~2019-11-01 14:19] MED LIST changes: -ARICEPT23 MG; +DONEPEZIL HCL10 MG PO; +EPOGEN20000 U/ML SC
--- NOTE | 2019-11-01 14:41 | NUR ---
FLU SWAB OBTAINED AND SENT TO LAB AT THIS TIME.
[2019-11-01 15:29] LABS: BASOPHILS 0.4 % (0-2); EOSINOPHILS 0.9 % (0-7); HEMATOCRIT 36.5 % (36.0-48.0); IMMATURE GRANULOCYTES 0.7 % (0-5); LYMPHOCYTES 4.9 % (15-50); MCH 26.8 pg (26.0-34.0); MCV 86.7 fL (80.0-100.0); MONOCYTES 6.4 % (2-11); NEUTROPHILS 86.7 % (40-80); RDW 15.5 % (11.5-14.5)
[2019-11-01 15:30] VITALS: BP 157/73
[2019-11-01 15:30] LABS: HEMOGLOBIN 11.3 g/dL (12-16); RBC 4.21 10x6/uL (4.00-5.40); WBC 7.5 10x3/uL (4.8-10.8)
[2019-11-01 15:31] LABS: PLATELET COUNT 14 10x3/uL (130-400)
[2019-11-01 15:41] LABS: INR 1.2 (0.85-1.17); PROTIME 15.1 SECONDS (11.6-15.0)
[2019-11-01 15:42] LABS: APTT 50.6 SECONDS (22.8-39.4)
[2019-11-01 15:54] LABS: CALCIUM 7.6 mg/dL (8.5-10.1); CARBON DIOXIDE 27.7 mmol/L (21.0-32.0); CHLORIDE - SERUM 101 mmol/L (98-107); POTASSIUM - SERUM 3.7 mmol/L (3.5-5.1); SODIUM 139 mmol/L (136-145); eGFR NON AFRICAN AMERICAN 18 mL/min (90-120)
[2019-11-01 15:55] LABS: CALC OSMOLALITY 287 mosm/kg (275-300); CREATININE - SERUM 2.7 mg/dL (0.6-1.3); GLUCOSE 216 mg/dL (74-106); UREA NITROGEN 22 mg/dL (7-18)
[2019-11-01 16:09] LABS: ALKALINE PHOSPHATASE 90 U/L (30-120); ALT (SGPT) 25 U/L (10-68); BILIRUBIN - TOTAL 0.64 mg/dL (0.2-1.3); CKMB 1.1 U/L (0.0-3.6); CREATINE KINASE 80 UL (21-215); PRO BNP 7335 pg/mL (0-125); PROTEIN - SERUM 6.6 g/dL (6.4-8.2); TROPONIN-I < 0.017 ng/mL (0.000-0.060)
[2019-11-01 16:30] VITALS: BP 167/75
[2019-11-01 17:30] VITALS: BP 169/79
[2019-11-01 18:44] VITALS: BP 169/81
--- NOTE | 2019-11-01 19:00 | NUR ---
Assume care of patient at this time for shift change, recieve report from Janelle DOLAN and Farrah RN. patient is resting comfortably. Denies needs or complaints. Bed has been assigned for admission but the room is not ready
--- NOTE | 2019-11-01 19:06 | NUR ---
BEDSIDE REPORT TO KATTY.
[2019-11-01 19:09] VITALS: BP 169/71
[2019-11-01 20:00] VITALS: BP 149/66
--- NOTE | 2019-11-01 20:00 | NUR ---
RECEIVED PATIENT TO ROOM 2107 VIA STRETCHER. PATIENT IS AAOX4, UP AD GAVINO. NO S/S OF DISTRESS OBSERVED, RR EVEN AND UNLABORED ON 2L VIA NC. VSS. PIV TO RT FA, SL, DRSG C/D/I. RT UPPER CHEST DIALYSIS PORT, DRSG C/D/I. DECUB ULCER TO RT LE. PATIENT DENIES NEEDS AT THIS TIME. QUICK START, MED REC, ADULT HX, SRS COMPLETED. CL IN REACH, BED LOCKED AND LOWERED. WILL CTM.
[2019-11-02] VITALS: BP 134/60
[2019-11-02 04:00] VITALS: BP 154/65
[2019-11-02 06:38] LABS: ALBUMIN 2.7 g/dL (3.4-5.0); ANION GAP 13.1 mmol/L (8-16); BILIRUBIN - TOTAL 0.48 mg/dL (0.2-1.3); CALCIUM 7.7 mg/dL (8.5-10.1); CARBON DIOXIDE 27.5 mmol/L (21.0-32.0); POTASSIUM - SERUM 3.6 mmol/L (3.5-5.1)
[2019-11-02 06:40] LABS: CREATININE - SERUM 3.6 mg/dL (0.6-1.3)
[2019-11-02 07:04] LABS: BASOPHILS 0.7 % (0-2); EOSINOPHILS 4.1 % (0-7); IMMATURE GRANULOCYTES 0.4 % (0-5); LYMPHOCYTES 19.3 % (15-50); MCH 27.4 pg (26.0-34.0); MCHC 31.3 g/dL (31.0-37.0); MCV 87.7 fL (80.0-100.0); MONOCYTES 6.9 % (2-11); NEUTROPHILS 68.6 % (40-80); RBC 3.65 10x6/uL (4.00-5.40); RDW 15.7 % (11.5-14.5); WBC 5.4 10x3/uL (4.8-10.8)
[2019-11-02 07:05] LABS: PLATELET COUNT 36 10x3/uL (130-400)
[2019-11-02 09:18] VITALS: BP 168/75
[2019-11-02 10:23] LABS: PLATELET ESTIMATE DECREASED
[2019-11-02 10:25] LABS: ANISOCYTOSIS 1+
[2019-11-02 13:36] VITALS: BP 197/96
[2019-11-02 14:40] VITALS: Ht 165.1 cm; Wt 68.4 kg
[2019-11-02 16:00] VITALS: BP 161/76
--- NOTE | 2019-11-02 19:20 | NUR ---
REPORT RECEIVED, WILL CONTINUE POC. PATIENT IS AAOX4, LYING IN SEMI-FOWLERS POSITION. NO S/S OF DISTRESS OBSERVED, RR EVEN AND UNLABORED ON 2L O2 VIA NC. PIV TO RT FA, INFUSING NS @KVO. RT CHEST HEMOSPLIT, DRSG C/D/I. PATIENT DENIES NEEDS AT THIS TIME. CL IN REACH, BED LOCKED AND LOWERED. WILL CTM.
--- NOTE | 2019-11-02 20:43 | NUR ---
ADMINISTERED HS MEDS, PATIENT TOLERATED WELL. ASSISTED PATIENT TO BATHROOM AND BACK TO BED.
[2019-11-02 21:00] VITALS: BP 165/85
--- NOTE | 2019-11-03 00:33 | NUR ---
RETACRIT ADMINISTERED TO LLQ OF ABDOMEN. PATIENT TOLERATED WELL.
[2019-11-03 01:18] VITALS: BP 158/78
--- NOTE | 2019-11-03 03:45 | NUR ---
I have reviewed this patient and I concur with the Shift Assessment completed by the Licensed Practical Nurse today this shift.
[2019-11-03 04:23] LABS: BASOPHILS 0.4 % (0-2); EOSINOPHILS 4.9 % (0-7); HEMATOCRIT 31.3 % (36.0-48.0); HEMOGLOBIN 9.5 g/dL (12-16); IMMATURE GRANULOCYTES 0.4 % (0-5); LYMPHOCYTES 21.5 % (15-50); MCH 26.4 pg (26.0-34.0); MCHC 30.4 g/dL (31.0-37.0); MCV 86.9 fL (80.0-100.0); MONOCYTES 10.7 % (2-11); NEUTROPHILS 62.1 % (40-80); RDW 15.3 % (11.5-14.5); WBC 4.5 10x3/uL (4.8-10.8)
[2019-11-03 04:42] VITALS: BP 151/74
--- NOTE | 2019-11-03 04:43 | NUR ---
RESPONDED TO PATIENT CALL LIGHT TO FIND SHE WAS BLEEDING FROM LAB DRAW SITE. SECURE SITE WITH PRESSURE DRESSING.
[2019-11-03 04:53] LABS: ANION GAP 11.7 mmol/L (8-16); CALCIUM 8.1 mg/dL (8.5-10.1); CARBON DIOXIDE 27.4 mmol/L (21.0-32.0); CREATININE - SERUM 4.1 mg/dL (0.6-1.3); POTASSIUM - SERUM 4.1 mmol/L (3.5-5.1)
[2019-11-03 05:03] LABS: PLATELET COUNT 44 10x3/uL (130-400)
[2019-11-03 08:00] VITALS: BP 151/86
[2019-11-03] MEDS ORDERED: AMOX TR-K CLV 21 TAB PO (11:41)
[2019-11-03 12:00] VITALS: BP 179/89
--- NOTE | 2019-11-03 12:59 | NUR ---
PT TRANSPORTED TO DIALYSIS BY BED AT THIS TIME. VSS. NO S/S OF DISTRESS AT THIS TIME. A/OX4.
--- NOTE | 2019-11-03 19:29 | MORECARE ---
CASE MANAGEMENT DISCHARGE SUMMARY PATIENT: MARIA DE JESUS CLAUDIO UNIT: [id number] ADM DATE: 11/01/19 AGE: 69 : 48 SEX: F ROOM/BED: D.2105 AUTHOR: CHERELLE ANDUJAR PHYSICIAN: REFERRING PHYSICIAN: DUONG PUENTES DO DATE OF SERVICE: 11/03/19 Discharge Plan Patient Name: MARIA DE JESUS CLAUDIO Facility: [facility]:[place] : 1950 Planned Disposition: Home Anticipated Discharge Date: 11/03/19 Discharge Date: 11/03/2019 Expected LOS: 2 Initial Reviewer: [email or web address] Initial Review Date: 11/03/2019 Generated: 11/03/19 8:29 pm DCPIA - Discharge Planning Initial Assessment Updated by [email or web address]: Ehsan Ashraf on 11/03/19 7:27 pm * Is the patient Alert and Oriented? Yes * How many steps to enter\exit or inside your home? ELEVATOR * PCP DR. TUSHAR LOZANO * Pharmacy [facility] * Preadmission Environment Home Alone * ADLs Independent * Equipment Cane Nebulizer Oxygen * Other Equipment HOME AND PORTABLE OXYGEN [facility] * List name and contact numbers for known caregivers / representatives who currently or will assist patient after discharge: CORBIN BRISCOE DTR, * Verbal permission to speak to the caregivers and representatives has been obtained from the patient. N/A * Community resources currently utilized Other * Please name any agencies selected above. OUTPATIENT DIALYSIS, MWF, 1000, [facility], DTR DRIVES * Additional services required to return to the preadmission environment? No * Can the patient safely return to the preadmission environment? Yes * Has this patient been hospitalized within the prior 30 days at any hospital? No Patient Name: MARIA DE JESUS CLAUDIO Page 52972 at 192 All edits/amendments must be made on the electronic document DICTATION DATE: 11/03/191928 ACCOUNTS PAYABLE CLERK: IESHA 11/03/191928 RPT#: [id number] DC DATE:11/03/19 STATUS: DIS IN [facility] [address] [place] [address] END OF REPORT
--- NOTE | 2019-11-03 19:36 | MORECARE ---
CASE MANAGEMENT DISCHARGE SUMMARY PATIENT: MARIA DE JESUS CLAUDIO UNIT: [id number] ADM DATE: 11/01/19 AGE: 69 : 48 SEX: F ROOM/BED: D.8254 AUTHOR: PRATIMA,DOC PHYSICIAN: REFERRING PHYSICIAN: DUONG PUENTES DO DATE OF SERVICE: 11/03/19 Discharge Plan Patient Name: MARIA DE JESUS CLAUDIO Facility: [facility]:[place] : 1950 Planned Disposition: Home Anticipated Discharge Date: 11/03/19 Discharge Date: 11/03/2019 Expected LOS: 2 Initial Reviewer: [email or web address] Initial Review Date: 11/03/2019 Generated: 11/03/19 8:36 pm Comments DCP- Discharge Planning Updated by [email or web address]: Ehsan Ashraf on 11/03/19 6:[address] Patient Name: MARIA DE JESUS CLAUDIO Admission Status: ER Accout number: [id number] Admission Date: 11-01-2019 : 1950 Admission Diagnosis: Attending: GERSON Current LOS: 2 Anticipated DC Date: 11-03-2019 Planned Disposition: Home Primary Insurance: MEDICARE A & B Discharge Planning Comments: CM MET WITH PT IN ROOM TO DISCUSS DISCHARGE PLANNING AND NEEDS. PT REPORTS LIVING AT HOME INDEPENDENTLY AND ALONE. PT HAS CANE, NEBULIZER AND HOME / PORTABLE OXYGEN FROM [facility]. PT HAS NO OUTSIDE SERVICES ASSISTING IN THE HOME. PT'S DAUGHTER TRANSPORTS PT TO AND FROM OUTPATIENT DIALYSIS AT [facility] MWF AT 1000AM. CM DISCUSSED AVAILABILITY OF HOME HEALTH, REHAB SERVICES AND MEDICAL EQUIPMENT. PT DENIES DISCHARGE NEEDS, REPORTS HER DAUGHTER WILL PICK HER UP FOR DISCHARGE HOME. IMPORTANT MESSAGE FROM MEDICARE PROVIDED AND EXPLAINED. SUGAR LABORATORY ASSISTANT NURSE NOTIFIED. Sightseeing Guide: Ehsan Ashraf DCPIA - Discharge Planning Initial Assessment Updated by [id number]: Ehsan Ashraf on 11/03/19 7:27 pm * Is the patient Alert and Oriented? Yes * How many steps to enter\exit or inside your home? ELEVATOR * PCP DR. TUSHAR LOZANO * Pharmacy [facility] * Preadmission Environment Home Alone * ADLs Independent * Equipment Cane Nebulizer Oxygen * Other Equipment HOME AND PORTABLE OXYGEN [facility] * List name and contact numbers for known caregivers / representatives who currently or will assist patient after discharge: CORBIN BRISCOE, DTR, * Verbal permission to speak to the caregivers and representatives has been obtained from the patient. N/A * Community resources currently utilized Other * Please name any agencies selected above. OUTPATIENT DIALYSIS, MWF, 1000, [facility], [facility] * Additional services required to return to the preadmission environment? No * Can the patient safely return to the preadmission environment? Yes * Has this patient been hospitalized within the prior 30 days at any hospital? No Coverage Notice Reviewer: [email or web address] Charlie Ashraf Notice Issued Date-Time: 11/03/2019 11:40 Notice Type: IM Discharge Notice Notice Delivered To: Patient Relationship to Patient: Childcare Center Director Name: Delivery Method: HAND - Hand Delivered Monalisa Days: Prior Verbal Notification: Recipient Understood Notice: Yes Recipient Signature: Yes Med Rec Note Co-signed by Attending: Coverage Notice Comment: Last DP export: 11/03/19 6:29 p Patient Name: MARIA DE JESUS CLAUDIO Page [phone] at 1936 All edits/amendments must be made on the electronic document DICTATION DATE: 11/03/191935 WEB ENGINEER: IESHA 11/03/191935 RPT#: [id number] DC DATE:11/03/19 STATUS: DIS IN [facility] [address] [place] [address] END OF REPORT
== END 2019-11-03 18:14 | disposition home or self-care (01) | DRG 193 ==
LOC: D.ER 14:19 → D.M2 15:44
PROVIDERS: Family Medicine; ADMIT Internal Medicine; ATTEND Internal Medicine
PROC: 5A1D70Z Performance of Urinary Filtration, Intermittent, Less than 6 Hours Per Day (ICD-10-PCS; principal; 2019-11-03)
DX: J18.9 Pneumonia, unspecified organism (principal); N18.6 End stage renal disease; I13.2 Hypertensive heart and chronic kidney disease with heart failure and with stage 5 chronic kidney disease, or end stage renal disease; D63.1 Anemia in chronic kidney disease; D75.82 Heparin induced thrombocytopenia (HIT); Z99.2 Dependence on renal dialysis; E78.5 Hyperlipidemia, unspecified; K21.9 Gastro-esophageal reflux disease without esophagitis; I50.9 Heart failure, unspecified; Z86.73 Personal history of transient ischemic attack (TIA), and cerebral infarction without residual deficits

== ENCOUNTER → 2019-11-20 15:12 | Outpatient (CLI) | payer MEDICARE ==
[2019-11-02 14:40] VITALS: BMI 24.9
[~2019-11-20 15:12] MED LIST changes: +AMOX TR-K CLV 21 TAB PO
== END | disposition home or self-care (01) ==
LOC: D.RAD 15:12
PROVIDERS: ATTEND Internal Medicine Nephrology
DX: R06.02 Shortness of breath (principal); L97.212 Non-pressure chronic ulcer of right calf with fat layer exposed